=== PATIENT | female | born 1990 | race Caucasian/White ===

== ENCOUNTER 2019-01-04 10:20 | Inpatient (IN) ==
[2019-01-04] MEDS: LACTATED RINGER'S 1,000 ML IV PRN ×3 (14:00→21:26)
[2019-01-04] MEDS ORDERED: OXYTOCIN 30 UNITS/500 ML BAG IV PRN (14:01)
[2019-01-04] MEDS ORDERED: BUPIVACAINE 0.25% 30 ML VIAL ONE (14:09)
[2019-01-04] MEDS ORDERED: ePHEDrine sulfate 50 MG/ML AMP ONE (14:09)
[2019-01-04] MEDS ORDERED: fentaNYL citrate 100 MCG/2 ML VIAL ONE (14:10)
[2019-01-04] MEDS ORDERED: fentaNYL 2MCG/ML ROPIV 1.25MG/ML 100 ML BAG EPI ONE (14:10)
[2019-01-04 14:25] LABS: Hematocrit (blood only) 35.3 % (37-47); Hemoglobin 11.3 g/dL (12.0-16.0); Mean Corpuscular Volume 86.7 fL (80-100); Mean Platelet Volume 12.1 fL (7.4-10.4); Platelet Count 164 K/uL (130-400); RDW Coefficient of Variation 15.1 % (11.5-14.5); RDW Standard Deviation 47.1 fL (36.4-46.3); Red Blood Count 4.07 M/uL (4.2-5.4); White Blood Count 10.37 K/uL (4.8-10.8)
--- NOTE | 2019-01-04 14:28 | Anesthesiology Consultation ---
Date of Service January 04, 2019 Assessment & Plan Chart Review Chart Review: Patient NOT seen in Pre Admission Testing and Acceptable Risk for Labor Epidural Consults Requested none ASA ASA2 Proposed Anesthesia Anesthesia Type: Labor Epidural Risk / Benefits Reviewed With: PT / POA / Parent / Guardian, Accepts Plan and Informed Consent Obtained History Height/Weight Height: 1.73 m Weight: 102.058 kg Allergies Allergy/AdvReac Type Severity Reaction Status Date / Time strawberry Allergy Rash Verified 12/31/18 00:20 Medications Home Medications Medication Instructions Recorded Confirmed Last Taken ferrous sulfate [iron] 150 mg PO DAILY 12/31/18 01/04/19 01/03/19 07:00 vit-iron fum-folic ac 1 tab PO DAILY 12/31/18 01/04/19 01/03/19 20:00 [ Vitamin] NPO Date Last Intake of Fluids: 01/04/19 Time Last Intake of Fluids: 13:30 Date Last Intake of Solids: 01/03/19 Time Last Intake of Solids: 21:00 Past Medical History Medical History Acid reflux History of anxiety History of kidney stones Lindsay teeth removed Exercise / Class Metabolic Activity II 4-5 Yardwork/Stairs/Walk up hill Past Surgical History Surgical History H/O LEEP History of cystoscopy Hx of arthroscopy of knee left Past Anesthesia History No Hx of Anesthesia Complications and No Family Hx of Anesthesia Complications History of PONV No Hx of PONV and Hx of Motion Sickness Social History Smoking Status: Never smoker Hx Alcohol Use: No Hx Substance Use: No substance use type: does not use Physical Exam Vital Signs Last Vital Signs Temp 37.0 C 01/04/19 14:24 Pulse 80 01/04/19 14:25 Resp 22 01/04/19 14:24 BP 122/71 01/04/19 14:24 Pulse Ox 100 01/04/19 14:25 ENMT Mouth: no TMJ abnormality and no TMJ clicking Thyromental Distance: > or= 3.5 Finger Breadths Mallampati Class: II Neck normal visual inspection; neck extension not limited Respiratory Auscultation: lungs clear to auscultation bilaterally Cardiovascular Rate/Rhythm: regular rate and regular rhythm Heart Sounds: no murmur Psychiatric Orientation: alert and oriented x 3 Testing Laboratory Results 01/04/19 14:18
[2019-01-04] MEDS ORDERED: NALBUPHINE HCL INJ 10 MG/ML AMP IV PRN (14:59)
[2019-01-04] MEDS ORDERED: ATROPINE SULFATE 0.1 MG/ML 10ML SYR IV PRN (14:59)
[2019-01-04] MEDS ORDERED: ONDANSETRON INJ 2 MG/ML 2 ML VIAL IV PRN (14:59)
[2019-01-04] MEDS ORDERED: PROMETHAZINE HCL 12.5 MG in SODIUM CHLORIDE 0.9% 50 ML IV PRN (14:59)
[2019-01-04] MEDS ORDERED: DiphenhydrAMINE HCL 50 MG/ML VIAL IV PRN (14:59)
[2019-01-04] MEDS ORDERED: NALOXONE HCL 0.4 MG/1 ML VIAL/CARP IV PRN (14:59)
[2019-01-04] MEDS ORDERED: NALOXONE HCL 1 MG in SODIUM CHLORIDE 0.9% 1000ML 1,000 ML IV PRN (14:59)
[2019-01-04] MEDS ORDERED: ePHEDrine sulfate 50 MG/ML AMP IV PRN ×2 (14:59)
[2019-01-04] MEDS: fentaNYL 2MCG/ML ROPIV 1.25MG/ML 100 ML BAG EPI PRN ×2 (19:01→21:36)
--- NOTE | 2019-01-04 20:44 | Labor Progress Brief Note ---
Date of Service January 04, 2019 Subjective Patient visited a short while ago. Comfortable with epidural. FHT Cat 1 [place] Q4 Cvx 7/100/-1 Continue current management. Results & Data Vital Signs (Past 12 Hours) Vital Signs Temp Pulse Resp BP Pulse Ox 01/04/19 20:40 80 100 01/04/19 20:37 73 16 118/62 01/04/19 20:35 91 H 100 01/04/19 20:30 82 99 01/04/19 20:25 79 99 01/04/19 20:24 83 118/61 01/04/19 20:20 37.3 C 87 97 01/04/19 20:15 87 98 01/04/19 20:10 95 H 99 01/04/19 20:09 86 117/69 01/04/19 20:08 18 01/04/19 20:05 92 H 99 01/04/19 20:00 85 99 01/04/19 19:55 90 123/77 100 01/04/19 19:50 93 H 99 01/04/19 19:45 96 H 98 01/04/19 19:40 92 H 99 01/04/19 19:39 85 111/64 01/04/19 19:35 87 99 01/04/19 19:30 90 98 01/04/19 19:25 88 117/67 100 01/04/19 19:20 86 98 01/04/19 19:15 85 99 01/04/19 19:10 37.2 C 94 H 18 119/73 100 01/04/19 19:05 92 H 99 01/04/19 19:00 98 H 99 01/04/19 18:55 122 H 122/78 98 01/04/19 18:50 92 H 100 01/04/19 18:45 94 H 100 01/04/19 18:44 20 01/04/19 18:40 89 116/71 99 01/04/19 18:35 91 H 100 01/04/19 18:30 102 H 100 01/04/19 18:29 20 01/04/19 18:25 90 100 01/04/19 18:24 93 H 116/78 01/04/19 18:20 94 H 98 01/04/19 18:15 92 H 100 01/04/19 18:10 92 H 114/71 98 01/04/19 18:05 96 H 99 01/04/19 18:00 90 100 01/04/19 17:59 87 94 01/04/19 17:55 89 99 01/04/19 17:54 88 117/73 01/04/19 17:53 20 01/04/19 17:50 96 H 98 01/04/19 17:45 90 99 01/04/19 17:40 88 117/72 100 01/04/19 17:35 87 100 01/04/19 17:30 89 100 01/04/19 17:29 36.7 C 20 01/04/19 17:25 91 H 100 01/04/19 17:24 93 H 110/71 01/04/19 17:20 95 H 100 01/04/19 17:15 95 H 100 01/04/19 17:10 92 H 116/74 100 01/04/19 17:05 86 100 01/04/19 17:01 20 01/04/19 17:00 93 H 99 01/04/19 16:55 87 120/72 100 01/04/19 16:50 93 H 100 01/04/19 16:45 93 H 100 01/04/19 16:40 86 118/72 100 01/04/19 16:39 36.8 C 01/04/19 16:35 87 99 01/04/19 16:30 91 H 100 01/04/19 16:29 20 01/04/19 16:25 100 H 20 119/71 100 01/04/19 16:20 85 100 01/04/19 16:15 82 99 01/04/19 16:14 20 01/04/19 16:10 83 99 01/04/19 16:09 75 108/54 L 01/04/19 16:05 83 100 01/04/19 16:00 89 99 01/04/19 15:59 20 01/04/19 15:55 92 H 97 01/04/19 15:54 95 H 115/58 L 01/04/19 15:50 78 100 01/04/19 15:45 82 100 01/04/19 15:44 20 01/04/19 15:40 82 112/61 98 01/04/19 15:35 85 100 01/04/19 15:30 82 95 01/04/19 15:29 20 01/04/19 15:25 81 99 01/04/19 15:22 76 105/60 01/04/19 15:20 80 104/62 97 01/04/19 15:15 81 100 01/04/19 15:14 80 20 125/56 L 01/04/19 15:10 85 99 01/04/19 15:07 75 113/59 L 01/04/19 15:05 89 99 01/04/19 15:02 85 89/55 L 01/04/19 15:00 93 H 100 01/04/19 14:59 90 20 108/57 L 01/04/19 14:56 90 114/54 L 01/04/19 14:55 97 H 100 01/04/19 14:54 93 H 110/53 L 01/04/19 14:52 96 H 119/55 L 01/04/19 14:50 103 H 121/61 100 01/04/19 14:45 92 H 100 01/04/19 14:40 87 99 01/04/19 14:37 96 H 93 01/04/19 14:35 80 100 01/04/19 14:30 82 100 01/04/19 14:25 80 100 01/04/19 14:24 37.0 C 80 22 122/71 01/04/19 13:37 83 117/68 01/04/19 13:36 36.7 C 20 01/04/19 10:36 36.7 C 20 01/04/19 10:30 93 H 138/84
[2019-01-04] MEDS ORDERED: Nursing to Pharmacy Communication ONE (23:06)
[2019-01-05] MEDS: fentaNYL 2MCG/ML ROPIV 1.25MG/ML 100 ML BAG EPI PRN ×2 (03:00→07:05)
[2019-01-05] MEDS ORDERED: OXYTOCIN 30 UNITS/500 ML BAG IV PRN ×2 (05:08→12:34)
[2019-01-05] MEDS ORDERED: ACETAMINOPHEN 650 MG SUPP PR STA (05:09)
[2019-01-05] MEDS ORDERED: AMPICILLIN 2,000 MG in SODIUM CHLOR 0.9% AD-VAN 100 ML IV SCH (05:30)
[2019-01-05] MEDS: LACTATED RINGER'S 1,000 ML IV PRN (05:34)
--- NOTE | 2019-01-05 06:47 | Labor Progress Brief Note ---
Date of Service January 05, 2019 Subjective Patient visited just after 6am. Complete, +2 station. FHT Cat 1. [place] Q3m with Pit @ 1 at that time. Events overnight include slow but steady cervical progress. Tmax 37.9 (100.3) with borderline tachy, therefore ordered rectal tylenol and IV ampicillin. Pitocin started after patient reached complete dilation due to toco Q2-5 irregular and want to be more efficient in pushing. FHT now appropriate for second stage with variables during pushes. Results & Data Vital Signs (Past 12 Hours) Vital Signs Temp Pulse Resp BP Pulse Ox 01/05/19 06:40 128 H 98 01/05/19 06:35 102 H 98 01/05/19 06:30 98 H 98 01/05/19 06:25 102 H 100 01/05/19 06:20 107 H 99 01/05/19 06:15 104 H 99 01/05/19 06:10 119 H 99 01/05/19 06:05 104 H 98 01/05/19 06:00 37.6 C H 106 H 98 01/05/19 05:55 104 H 99 01/05/19 05:50 95 H 100 01/05/19 05:45 95 H 98 01/05/19 05:40 92 H 99 01/05/19 05:38 93 H 112/59 L 01/05/19 05:35 102 H 99 01/05/19 05:30 92 H 99 01/05/19 05:25 96 H 99 01/05/19 05:20 97 H 100 01/05/19 05:15 94 H 99 01/05/19 05:10 92 H 99 01/05/19 05:05 92 H 100 01/05/19 05:00 101 H 99 01/05/19 04:59 37.5 C 01/05/19 04:56 99 H 92 01/05/19 04:55 102 H 99 01/05/19 04:50 102 H 99 01/05/19 04:45 107 H 100 01/05/19 04:40 91 H 98 01/05/19 04:37 90 117/56 L 01/05/19 04:35 89 100 01/05/19 04:30 92 H 98 01/05/19 04:25 91 H 100 01/05/19 04:20 96 H 100 01/05/19 04:18 97 H 90 01/05/19 04:15 96 H 99 01/05/19 04:10 95 H 99 01/05/19 04:05 98 H 100 01/05/19 04:00 103 H 97 01/05/19 03:55 105 H 98 01/05/19 03:50 102 H 98 01/05/19 03:45 96 H 99 01/05/19 03:40 101 H 96 01/05/19 03:38 90 115/55 L 01/05/19 03:35 90 98 01/05/19 03:30 37.7 C H 94 H 18 99 01/05/19 03:25 87 97 01/05/19 03:20 84 97 01/05/19 03:15 87 97 01/05/19 03:10 87 98 01/05/19 03:05 90 98 01/05/19 03:00 84 98 01/05/19 02:55 99 H 99 01/05/19 02:50 87 100 01/05/19 02:45 84 100 01/05/19 02:40 86 100 01/05/19 02:38 88 106/55 L 01/05/19 02:35 85 99 01/05/19 02:30 37.9 C H 87 18 98 01/05/19 02:25 95 H 99 01/05/19 02:20 108 H 97 01/05/19 02:15 90 97 01/05/19 02:10 88 97 01/05/19 02:05 89 97 01/05/19 02:00 91 H 97 01/05/19 01:55 94 H 97 01/05/19 01:50 89 97 01/05/19 01:45 86 98 01/05/19 01:40 86 98 01/05/19 01:37 96 H 118/59 L 01/05/19 01:35 92 H 100 01/05/19 01:30 91 H 100 01/05/19 01:25 84 98 01/05/19 01:20 91 H 98 01/05/19 01:15 101 H 99 01/05/19 01:10 99 H 99 01/05/19 01:05 101 H 98 01/05/19 01:03 37.3 C 01/05/19 01:00 111 H 100 01/05/19 00:55 141 H 98 06/03/19 00:50 84 98 01/05/19 00:45 84 98 01/05/19 00:40 86 99 01/05/19 00:38 86 108/50 L 01/05/19 00:35 82 98 01/05/19 00:30 80 98 01/05/19 00:25 89 98 01/05/19 00:20 82 98 01/05/19 00:15 82 98 01/05/19 00:10 84 98 01/05/19 00:05 79 97 01/05/19 00:00 79 97 01/04/19 23:55 84 99 01/04/19 23:50 37.3 C 89 18 99 01/04/19 23:45 81 96 01/04/19 23:40 80 98 01/04/19 23:37 81 94/51 L 01/04/19 23:35 79 97 01/04/19 23:30 80 98 01/04/19 23:25 80 98 01/04/19 23:20 85 99 01/04/19 23:15 90 98 01/04/19 23:10 82 99 01/04/19 23:05 81 98 01/04/19 23:00 80 98 01/04/19 22:55 82 98 01/04/19 22:50 85 100 01/04/19 22:45 84 99 01/04/19 22:40 75 99 01/04/19 22:37 37.3 C 76 18 103/55 L 01/04/19 22:35 85 100 01/04/19 22:30 91 H 97 01/04/19 22:25 95 H 100 01/04/19 22:20 98 H 99 01/04/19 22:15 109 H 98 01/04/19 22:10 91 H 98 01/04/19 22:05 87 98 01/04/19 22:00 86 100 01/04/19 21:55 83 98 01/04/19 21:50 83 98 01/04/19 21:45 87 98 01/04/19 21:40 89 98 01/04/19 21:37 37.3 C 80 16 112/60 01/04/19 21:35 80 98 01/04/19 21:30 79 98 01/04/19 21:25 37.3 C 79 99 01/04/19 21:20 77 98 01/04/19 21:15 80 99 01/04/19 21:10 80 98 01/04/19 21:05 80 99 01/04/19 21:00 83 99 01/04/19 20:55 82 99 01/04/19 20:50 90 99 01/04/19 20:45 78 99 01/04/19 20:40 80 100 01/04/19 20:37 73 16 118/62 01/04/19 20:35 91 H 100 01/04/19 20:30 82 99 01/04/19 20:25 79 99 01/04/19 20:24 83 118/61 01/04/19 20:20 37.3 C 87 97 01/04/19 20:15 87 98 01/04/19 20:10 95 H 99 01/04/19 20:09 86 117/69 01/04/19 20:08 18 01/04/19 20:05 92 H 99 01/04/19 20:00 85 99 01/04/19 19:55 90 123/77 100 01/04/19 19:50 93 H 99 01/04/19 19:45 96 H 98 01/04/19 19:40 92 H 99 01/04/19 19:39 85 111/64 01/04/19 19:35 87 99 01/04/19 19:30 90 98 01/04/19 19:25 88 117/67 100 01/04/19 19:20 86 98 01/04/19 19:15 85 99 01/04/19 19:10 37.2 C 94 H 18 119/73 100 01/04/19 19:05 92 H 99 01/04/19 19:00 98 H 99 01/04/19 18:55 122 H 122/78 98 01/04/19 18:50 92 H 100 01/04/19 18:45 94 H 100
--- NOTE | 2019-01-05 08:43 | Procedure Note ---
Vaginal Delivery Summary Date of Service January 05, 2019 Note management of labor was done by Dr. Garcia I arrived at 730 and delivered baby soon afterwards as her shifted ended at that time she was pushing well with an epidural had some thin meconium heart rate tracing was category 1 at this time baby was delivered over a second-degree tear in occiput anterior position mouth and nares suctioned no nuchal cord gentle traction no excessive force live vigorous male infant cord clamped and cut cord gases obtained cord blood obtained placenta removed with gentle traction second-degree tear repaired with 3-0 Vicryl sponge and instrument counts correct estimated blood loss 250 mL uterine tone improved with Pitocin and bleeding was in normal ranges
--- NOTE | 2019-01-05 09:11 | Anesthesiology Progress Note ---
Date of Service January 05, 2019 Anesthesia Post Procedure Vital Signs Vital Signs: Temp Pulse Resp BP Pulse Ox 01/05/19 09:01 81 114/58 L 01/05/19 08:46 86 108/56 L 01/05/19 08:31 94 H 116/56 L 01/05/19 08:27 99 H 91 01/05/19 08:25 97 H 100 01/05/19 08:20 36.9 C 99 H 18 99 01/05/19 08:16 100 H 113/58 L 01/05/19 08:15 101 H 99 01/05/19 08:10 105 H 100 01/05/19 08:05 103 H 99 01/05/19 08:01 96 H 126/65 01/05/19 08:00 97 H 99 01/05/19 07:59 98 H 93 01/05/19 07:55 141 H 98 01/05/19 07:50 110 H 97 01/05/19 07:46 96 H 128/66 01/05/19 07:45 96 H 96 01/05/19 07:40 104 H 97 01/05/19 07:35 96 H 97 01/05/19 07:33 36.6 C 85 22 125/71 01/05/19 07:30 94 H 98 01/05/19 07:25 94 H 98 01/05/19 07:20 93 H 97 01/05/19 07:15 105 H 98 01/05/19 07:10 113 H 99 01/05/19 07:05 94 H 97 01/05/19 07:00 37.1 C 101 H 18 97 01/05/19 06:55 95 H 98 01/05/19 06:50 102 H 98 01/05/19 06:49 100 H 131/57 L 01/05/19 06:45 98 H 98 01/05/19 06:40 128 H 98 01/05/19 06:35 102 H 98 01/05/19 06:30 98 H 98 01/05/19 06:25 102 H 100 01/05/19 06:20 107 H 99 01/05/19 06:15 104 H 99 01/05/19 06:10 119 H 99 01/05/19 06:05 104 H 98 01/05/19 06:00 37.6 C H 106 H 98 01/05/19 05:55 104 H 99 01/05/19 05:50 95 H 100 01/05/19 05:45 95 H 98 01/05/19 05:40 92 H 99 01/05/19 05:38 93 H 112/59 L 01/05/19 05:35 102 H 99 01/05/19 05:30 92 H 99 01/05/19 05:25 96 H 99 01/05/19 05:20 97 H 100 01/05/19 05:15 94 H 99 01/05/19 05:10 92 H 99 01/05/19 05:05 92 H 100 01/05/19 05:00 101 H 99 01/05/19 04:59 37.5 C 01/05/19 04:56 99 H 92 01/05/19 04:55 102 H 99 01/05/19 04:50 102 H 99 01/05/19 04:45 107 H 100 01/05/19 04:40 91 H 98 01/05/19 04:37 90 117/56 L 01/05/19 04:35 89 100 01/05/19 04:30 92 H 98 01/05/19 04:25 91 H 100 01/05/19 04:20 96 H 100 01/05/19 04:18 97 H 90 01/05/19 04:15 96 H 99 01/05/19 04:10 95 H 99 01/05/19 04:05 98 H 100 01/05/19 04:00 103 H 97 01/05/19 03:55 105 H 98 01/05/19 03:50 102 H 98 01/05/19 03:45 96 H 99 01/05/19 03:40 101 H 96 01/05/19 03:38 90 115/55 L 01/05/19 03:35 90 98 01/05/19 03:30 37.7 C H 94 H 18 99 01/05/19 03:25 87 97 01/05/19 03:20 84 97 01/05/19 03:15 87 97 01/05/19 03:10 87 98 01/05/19 03:05 90 98 01/05/19 03:00 84 98 01/05/19 02:55 99 H 99 01/05/19 02:50 87 100 01/05/19 02:45 84 100 01/05/19 02:40 86 100 06/03/19 02:38 88 106/55 L 01/05/19 02:35 85 99 01/05/19 02:30 37.9 C H 87 18 98 01/05/19 02:25 95 H 99 01/05/19 02:20 108 H 97 01/05/19 02:15 90 97 01/05/19 02:10 88 97 01/05/19 02:05 89 97 01/05/19 02:00 91 H 97 01/05/19 01:55 94 H 97 01/05/19 01:50 89 97 01/05/19 01:45 86 98 01/05/19 01:40 86 98 01/05/19 01:37 96 H 118/59 L 01/05/19 01:35 92 H 100 01/05/19 01:30 91 H 100 01/05/19 01:25 84 98 01/05/19 01:20 91 H 98 01/05/19 01:15 101 H 99 01/05/19 01:10 99 H 99 01/05/19 01:05 101 H 98 01/05/19 01:03 37.3 C 01/05/19 01:00 111 H 100 01/05/19 00:55 141 H 98 01/05/19 00:50 84 98 01/05/19 00:45 84 98 01/05/19 00:40 86 99 01/05/19 00:38 86 108/50 L 01/05/19 00:35 82 98 01/05/19 00:30 80 98 01/05/19 00:25 89 98 01/05/19 00:20 82 98 01/05/19 00:15 82 98 01/05/19 00:10 84 98 01/05/19 00:05 79 97 01/05/19 00:00 79 97 01/04/19 23:55 84 99 01/04/19 23:50 37.3 C 89 18 99 01/04/19 23:45 81 96 01/04/19 23:40 80 98 01/04/19 23:37 81 94/51 L 01/04/19 23:35 79 97 01/04/19 23:30 80 98 01/04/19 23:25 80 98 01/04/19 23:20 85 99 01/04/19 23:15 90 98 01/04/19 23:10 82 99 01/04/19 23:05 81 98 01/04/19 23:00 80 98 01/04/19 22:55 82 98 01/04/19 22:50 85 100 01/04/19 22:45 84 99 01/04/19 22:40 75 99 01/04/19 22:37 37.3 C 76 18 103/55 L 01/04/19 22:35 85 100 01/04/19 22:30 91 H 97 01/04/19 22:25 95 H 100 01/04/19 22:20 98 H 99 01/04/19 22:15 109 H 98 01/04/19 22:10 91 H 98 01/04/19 22:05 87 98 01/04/19 22:00 86 100 01/04/19 21:55 83 98 01/04/19 21:50 83 98 01/04/19 21:45 87 98 01/04/19 21:40 89 98 01/04/19 21:37 37.3 C 80 16 112/60 01/04/19 21:35 80 98 01/04/19 21:30 79 98 01/04/19 21:25 37.3 C 79 99 01/04/19 21:20 77 98 01/04/19 21:15 80 99 01/04/19 21:10 80 98 01/04/19 21:05 80 99 01/04/19 21:00 83 99 01/04/19 20:55 82 99 01/04/19 20:50 90 99 01/04/19 20:45 78 99 01/04/19 20:40 80 100 01/04/19 20:37 73 16 118/62 01/04/19 20:35 91 H 100 01/04/19 20:30 82 99 01/04/19 20:25 79 99 01/04/19 20:24 83 118/61 01/04/19 20:20 37.3 C 87 97 01/04/19 20:15 87 98 01/04/19 20:10 95 H 99 01/04/19 20:09 86 117/69 01/04/19 20:08 18 01/04/19 20:05 92 H 99 01/04/19 20:00 85 99 01/04/19 19:55 90 123/77 100 01/04/19 19:50 93 H 99 01/04/19 19:45 96 H 98 01/04/19 19:40 92 H 99 01/04/19 19:39 85 111/64 01/04/19 19:35 87 99 01/04/19 19:30 90 98 01/04/19 19:25 88 117/67 100 01/04/19 19:20 86 98 01/04/19 19:15 85 99 01/04/19 19:10 37.2 C 94 H 18 119/73 100 01/04/19 19:05 92 H 99 01/04/19 19:00 98 H 99 01/04/19 18:55 122 H 122/78 98 01/04/19 18:50 92 H 100 01/04/19 18:45 94 H 100 01/04/19 18:44 20 01/04/19 18:40 89 116/71 99 01/04/19 18:35 91 H 100 01/04/19 18:30 102 H 100 01/04/19 18:29 20 01/04/19 18:25 90 100 01/04/19 18:24 93 H 116/78 01/04/19 18:20 94 H 98 01/04/19 18:15 92 H 100 01/04/19 18:10 92 H 114/71 98 01/04/19 18:05 96 H 99 01/04/19 18:00 90 100 01/04/19 17:59 87 94 01/04/19 17:55 89 99 01/04/19 17:54 88 117/73 01/04/19 17:53 20 01/04/19 17:50 96 H 98 01/04/19 17:45 90 99 01/04/19 17:40 88 117/72 100 01/04/19 17:35 87 100 01/04/19 17:30 89 100 01/04/19 17:29 36.7 C 20 01/04/19 17:25 91 H 100 01/04/19 17:24 93 H 110/71 01/04/19 17:20 95 H 100 01/04/19 17:15 95 H 100 01/04/19 17:10 92 H 116/74 100 01/04/19 17:05 86 100 01/04/19 17:01 20 01/04/19 17:00 93 H 99 01/04/19 16:55 87 120/72 100 01/04/19 16:50 93 H 100 01/04/19 16:45 93 H 100 01/04/19 16:40 86 118/72 100 01/04/19 16:39 36.8 C 01/04/19 16:35 87 99 01/04/19 16:30 91 H 100 01/04/19 16:29 20 01/04/19 16:25 100 H 20 119/71 100 01/04/19 16:20 85 100 01/04/19 16:15 82 99 01/04/19 16:14 20 01/04/19 16:10 83 99 01/04/19 16:09 75 108/54 L 01/04/19 16:05 83 100 01/04/19 16:00 89 99 01/04/19 15:59 20 01/04/19 15:55 92 H 97 01/04/19 15:54 95 H 115/58 L 01/04/19 15:50 78 100 01/04/19 15:45 82 100 01/04/19 15:44 20 01/04/19 15:40 82 112/61 98 01/04/19 15:35 85 100 01/04/19 15:30 82 95 01/04/19 15:29 20 01/04/19 15:25 81 99 01/04/19 15:22 76 105/60 01/04/19 15:20 80 104/62 97 01/04/19 15:15 81 100 01/04/19 15:14 80 20 125/56 L 01/04/19 15:10 85 99 01/04/19 15:07 75 113/59 L 01/04/19 15:05 89 99 01/04/19 15:02 85 89/55 L 01/04/19 15:00 93 H 100 01/04/19 14:59 90 20 108/57 L 01/04/19 14:56 90 114/54 L 01/04/19 14:55 97 H 100 01/04/19 14:54 93 H 110/53 L 01/04/19 14:52 96 H 119/55 L 01/04/19 14:50 103 H 121/61 100 01/04/19 14:45 92 H 100 01/04/19 14:40 87 99 01/04/19 14:37 96 H 93 01/04/19 14:35 80 100 01/04/19 14:30 82 100 01/04/19 14:25 80 100 01/04/19 14:24 37.0 C 80 22 122/71 01/04/19 13:37 83 117/68 01/04/19 13:36 36.7 C 20 01/04/19 10:36 36.7 C 20 01/04/19 10:30 93 H 138/84 Pain Intensity Abdomen: Pain Intensity: 0 Notes Mental Status: alert / awake / arousable Nausea / Vomiting: adequately controlled Pain: adequately controlled Airway Patency, RR, SpO2: stable & adequate BP & HR: stable & adequate Hydration State: stable & adequate Neuraxial Anesthesia: was administered and sensory block is resolving Anesthetic Complications: no major complications apparent and Pt Satisfied with anesthetic care
[2019-01-05 10:43] LABS: Base Excess Cord Arterial Bld -6.6 mEq/L (-9-1.8); Base Excess Cord Venous Blood -5.5 mEq/L (-7.7-1.9); CO2 Cord Arterial Blood 55 mmHg (39.1-73.5); Cord Venous Blood HCO3 19 mmol/L (18.4-26.8); Cord Venous Blood PCO2 33 mmHg (30.4-57.2); Cord Venous Blood PO2 31 mmHg (14.1-43.3); Cord Venous Blood pH 7.37 (7.20-7.44); HCO3 Cord Arterial Blood 22 mmol/L (19.7-28.5); pH Cord Arterial Blood 7.22 (7.1-7.38)
[2019-01-05] MEDS ORDERED: HYDROCORTISONE ACETATE 25 MG SUPP PR PRN (12:34)
[2019-01-05] MEDS ORDERED: DIPHTHERIA/TETANUS/PERTUSSIS 0.5 ML SYR/VIAL IM ONE (12:34)
[2019-01-05] MEDS ORDERED: NON-FORMULARY MEDICATION (Prenatal Vit-Iron Fum-Folic Ac [Prenatal Vitamin] 1 TAB) PO SCH (12:34)
[2019-01-05] MEDS ORDERED: OXYCODONE/ACETAMINOPHEN 5mg/325mg TAB PO PRN (12:34)
[2019-01-05] MEDS ORDERED: SUPERCREAM 0.870% 15 GM JAR EXT PRN (12:34)
[2019-01-05] MEDS ORDERED: ACETAMINOPHEN 325 MG TAB PO PRN (12:34)
[2019-01-05] MEDS ORDERED: BISACODYL 10 MG SUPP PR PRN (12:34)
[2019-01-05] MEDS ORDERED: BENZOCAINE 20% AER SPR 82.5 GM CAN EXT PRN (12:34)
[2019-01-05] MEDS: IBUPROFEN 600 MG TAB PO PRN ×2 (16:48→20:42)
[2019-01-05] MEDS: DOCUSATE SODIUM 100 MG CAP PO SCH ×2 (16:48→20:41)
[2019-01-05] MEDS: PRENATAL VITAMIN 1 TAB PO SCH (16:48)
[2019-01-06 06:30] LABS: Hematocrit (blood only) 31.3 % (37-47); Mean Corpuscular Hgb Conc 31.9 g/dL (32-36); Mean Corpuscular Volume 86.9 fL (80-100); Mean Platelet Volume 12.2 fL (7.4-10.4); Platelet Count 140 K/uL (130-400); RDW Coefficient of Variation 15.7 % (11.5-14.5); RDW Standard Deviation 49.3 fL (36.4-46.3); White Blood Count 12.29 K/uL (4.8-10.8)
--- NOTE | 2019-01-06 06:43 | Obstetrical Progress Note ---
Date of Service <Sharan Lee MD - Last Filed: 01/06/19 06:43> January 06, 2019 Assessment & Plan <Sharan Lee MD - Last Filed: 01/06/19 06:43> (1) Vaginal delivery: Deanne is a 28yo G1PO who presented at 40+6 now s/p PPD#1 - Feels well today. Eating well, voiding well, ambulating well. - Pain well controlled with ibuprofen 600mg Q4H PRN. - , working on latch. Continue counseling today. - Routine care - After discharge will have [address] Garza. Subjective <Sharan Lee MD - Last Filed: 01/06/19 06:43> Ambulation: ambulating normally Voiding: no voiding problems Passing Gas:: Yes Diet Tolerance:: regular diet Lochia:: Moderate Feeding Type:: breast feeding (some latch difficulty) Current Pain Level(1-10): 3 Review of Systems Denies fever, chills, sweats Denies shortness of breath, difficulty breathing, chest pain, palpitations, chest pressure. Denies breast pain. Denies dysuria. Denies headache. Physical Exam <Sharan Lee MD - Last Filed: 01/06/19 06:43> Vital Signs (Past 24 Hours) Last Vital Signs Temp 37.1 C 01/06/19 04:00 Pulse 88 01/06/19 04:00 Resp 18 01/06/19 04:00 BP 126/70 01/06/19 04:00 Pulse Ox 99 01/05/19 15:30 General: Alert, oriented. No acute distress. Cardiac: Regular rate and rhythm, no murmurs/rubs/gallops. Respiratory: Clear to auscultation anterior and posteriorly, no wheezes/rales/rhonchi. No increased work of breathing. Symmetrical chest rise. No respiratory distress. Abdomen: Soft, nontender, nondistended. Bowel sounds present. Uterus: Uterine fundus firm, palpable 2cm below umbilicus. Lower Extremities: No lower extremity edema or swelling. No deep calf pain. Ivette's negative bilaterally. <Sloane Abad MD, FACOG - Last Filed: 01/06/19 07:49> Co-Signing Physician Notes Resident Physician Supervision Note: I interviewed and examined the patient. Discussed with Dr. Sharan Lee PGY1 and agree with findings and plan as documented in the note. Any exceptions or clarifications are listed here: [None] Documented By: Sloane Abad MD, FACOG Resident Activity Tracking <Sharan Lee MD - Last Filed: 01/06/19 06:43> Resident Involvement: Resident Care Provided Care Provided: Adult Hospital Medicine
[2019-01-06] MEDS: DOCUSATE SODIUM 100 MG CAP PO SCH ×2 (08:47→20:13)
[2019-01-06] MEDS: PRENATAL VITAMIN 1 TAB PO SCH (08:47)
[2019-01-06] MEDS ORDERED: Nursing to Pharmacy Communication ONE (18:14)
[2019-01-06] MEDS ORDERED: BISACODYL 5 MG TABEC PO SCH (20:00)
--- NOTE | 2019-01-07 06:46 | Obstetrical Progress Note ---
Date of Service <Sharan Lee MD - Last Filed: 01/07/19 06:46> January 07, 2019 Assessment & Plan <Sharan Lee MD - Last Filed: 01/07/19 06:46> (1) Vaginal delivery: Deanne is a 28yo G1PO who presented at 40+6 now s/p PPD#2 - Feels well today. Eating well, voiding well, ambulating well. - Pain well controlled with ibuprofen 600mg Q4H PRN. - , going well today. - Routine care - After discharge will have [address] Garza. Subjective <Sharan Lee MD - Last Filed: 01/07/19 06:46> Ambulation: ambulating normally Voiding: no voiding problems Passing Gas:: Yes Diet Tolerance:: regular diet Lochia:: Small Current Pain Level(1-10): 2 Review of Systems Denies fever, chills, sweats Denies shortness of breath, difficulty breathing, chest pain, palpitations, chest pressure. Denies breast pain. Denies dysuria. Denies headache. Physical Exam <Sharan Lee MD - Last Filed: 01/07/19 06:46> Vital Signs (Past 24 Hours) Last Vital Signs Temp 36.3 C L 01/07/19 00:00 Pulse 88 01/07/19 00:00 Resp 18 01/07/19 00:00 BP 110/70 01/07/19 00:00 Pulse Ox 100 01/06/19 16:20 General: Alert, oriented. No acute distress. Cardiac: Regular rate and rhythm, no murmurs/rubs/gallops. Respiratory: Clear to auscultation anterior and posteriorly, no wheezes/rales/rhonchi. No increased work of breathing. Symmetrical chest rise. No respiratory distress. Abdomen: Soft, nontender, nondistended. Bowel sounds present. Uterus: Uterine fundus firm, palpable 1cm below umbilicus. Lower Extremities: 1+ edema in the ankles bilaterally. No deep calf pain. Ivette's negative bilaterally. <Jose Alfredo Murphy Jr, MD, FACOG - Last Filed: 01/07/19 07:00> Co-Signing Physician Notes Resident Physician Supervision Note: I was present with Dr. Lee during the history and exam. I discussed the case with the resident and agree with the findings and plan as documented in the note. Any exceptions or clarifications are listed here: Patient desires d/c. Instructions given, f/u in 6 weeks Documented By: Jose Alfreod Murphy Jr, MD, FACOG Resident Activity Tracking <Sharan Lee MD - Last Filed: 01/07/19 06:46> Resident Involvement: Resident Care Provided Care Provided: Adult Hospital Medicine
[2019-01-07 06:54] LABS: Hematocrit (blood only) 31.8 % (37-47); Hemoglobin 10.2 g/dL (12.0-16.0)
[2019-01-07] MEDS: DOCUSATE SODIUM 100 MG CAP PO SCH (09:01)
[2019-01-07] MEDS: PRENATAL VITAMIN 1 TAB PO SCH (09:01)
== END 2019-01-07 11:25 | disposition home or self-care (01) | DRG 806 ==
LOC: OPB 10:20 → 4S1 10:20 → 4S2 01-05 11:53